=== PATIENT | male | born 1980 | race Two or more races ===

== ENCOUNTER 2022-02-23 13:57 | Outpatient (CLI) | payer OTHER | END 2022-02-23 14:13 | disposition home or self-care (01) | LOC: MRI 13:57 | PROVIDERS: ATTEND Surgery | DX: M51.17 Intervertebral disc disorders with radiculopathy, lumbosacral region (principal) | CPT/HCPCS: 72148 ==

== ENCOUNTER 2022-11-03 07:36 | Outpatient (CLI) | payer OTHER | END 2022-11-03 07:58 | disposition home or self-care (01) | LOC: RAD 07:36 | PROVIDERS: ATTEND Surgery | DX: M43.20 Fusion of spine, site unspecified (principal) | CPT/HCPCS: 72158 ==

== ENCOUNTER 2023-09-15 09:55 | Outpatient (CLI) | payer OTHER | END 2023-09-15 10:06 | disposition home or self-care (01) | LOC: MRI 09:55 | PROVIDERS: ATTEND Surgery | DX: M51.17 Intervertebral disc disorders with radiculopathy, lumbosacral region (principal) | CPT/HCPCS: 72148 ==